=== PATIENT | female | born 1980 | race Caucasian/White ===

== ENCOUNTER 2018-05-27 12:57 | Inpatient (IN) | payer BC, OTHER ==
[~2018-05-27] VITALS: Ht 160 cm; Wt 72.6 kg
--- NOTE | 2018-05-27 13:15 | NUR ---
1302 DELIVERY OF BABY, HEAD CAME OUT WITHIN THE JAGJIT MINUTE THE BODY WAS DELIVERED. 1305 PLACENTA DELIVERY LIVE OF BOY. STAFF PRESENT: USHA AVILA RN, ANDIE DIXON RN, DR. JOYCE, DR. DAMIAN, (NOE ESTRADA, ROMA, JOEY MARTIN, ROMA, AND MICH CHATTERJEE CNA) DR[facility] STAFF ACCOMPANIED HER. PT WAS 37 WEEKS 5 DAYS GESTATION NO PAIN MEDICATION OR ANESTHESIA DELIVERY PERFORMED BY DR. DAMIAN 1 MINUTE - 8 5 MINUTE- 9 PLACENTA, CORD, AND BLOOD COLLECTED AT 1345 BY USHA AVILA RN. OXYTOCIN WAS RUNNING A BOLUS WIDE OPEN. TRANSPORTED TO VIA [facility] IN [place]. REPORT GIVEN TO OLIVER JAY RN/MEDIC AND CHLOE HORTON, EMT.
--- NOTE | 2018-05-27 13:19 | ED General ---
General Chief Complaint: TELEGRAPH DISPATCHER Stated Complaint: L&D Source of Information: Patient History of Present Illness Date Seen by Provider: May 27, 2018 Time Seen by Provider: 13:00 (immediately on arrival) This is a 38-year-old female at approximately 37 weeks gestation who presents to the emergency department with suspected labor. She has been having contractions coming and going all morning, she admits to loss of fluid. She takes vitamins but takes no other medications. She denies any other symptoms at this time. She called her TELEGRAPH DISPATCHER Dr. Rosen who advised patient to come to the emergency department, Dr. Rosen and her team came to the emergency department prior to patient arrival. Allergies and Home Medications Allergies Coded Allergies: No Known Drug Allergies (Unverified , 05/27/18) Patient Home Medication List Home Medication List Reviewed: Yes Review of Systems Review of Systems Constitutional: no symptoms reported EENTM: no symptoms reported Respiratory: no symptoms reported Cardiovascular: no symptoms reported Gastrointestinal: no symptoms reported Genitourinary: see HPI Psychiatric/Neurological: No Symptoms Reported All Other Systems Reviewed Negative Unless Noted: Yes (Negative excepted noted.) Past Vskxshx-Ahaoms-Rsrinh Hx Past Med/Social Hx: Reviewed Nursing Past Med/Soc Hx Physical Exam Vital Signs Vital Signs - First Documented 05/27/18 13:00 Temp 98.2 Pulse 91 Resp 18 B/P (MAP) 145/88 (107) Pulse Ox 98 O2 Delivery Room Air Capillary Refill : Height, Weight, BMI Height: '" Weight: lbs. oz. kg; BMI Method: General Appearance: Other (appears to be having intermittent contractions) HEENT: PERRL/EOMI, Moist Mucous Membranes Neck: Supple Respiratory: Lungs Clear Cardiovascular: Regular Rate, Rhythm, Normal Peripheral Pulses Gastrointestinal: Other (gravid abdomen, after delivery uterus is firm to palpation) Genital/Rectal: Other (sterile gloved exam performed by Dr. Rosen at bedside) Neurologic/Psychiatric: Alert, No Motor/Sensory Deficits Skin: Warm/Dry Progress/Results/Core Measures Suspected Sepsis SIRS Temperature: Pulse: Respiratory Rate: Blood Pressure / Mean: Results/Orders My Orders Orders - ELSIE JOYCE DO Oxytocin/Normal Saline (Pitocin Pre-Mix) (05/27/18 13:20) Placenta & Cord To Pathology (05/27/18 13:40) Medications Given in ED Current Medications Medications Dose Ordered Sig/Shanelle Route Start Time Stop Time Status Last Admin Dose Admin Oxytocin/Sodium Chloride 500 ml @ ud STK-MED ONCE IV 05/27/18 13:20 05/27/18 13:23 DC 05/27/18 13:24 999 MLS/HR Vital Signs/I&O 05/27/18 05/27/18 13:00 13:25 Temp 98.2 97.8 Pulse 91 72 Resp 18 18 B/P (MAP) 145/88 (107) 117/71 (86) Pulse Ox 98 99 O2 Delivery Room Air Room Air Capillary Refill : Progress Note : Progress Note TELEGRAPH DISPATCHER was at bedside since prior to patient arrival and performed the vaginal delivery of baby and placenta. There were no observed complications. See Dr. Rosen's separate procedure note. Mom was reassessed after delivery and stated that she was feeling fine. Uterus was firm, there was no significant ongoing vaginal bleeding. There appeared to be a very small posterior vaginal laceration on inspection. Baby appeared to be doing well, had APGARs of 8 and 9. Patient and baby will be transferred for further care. Pitocin will be ordered in accordance with TELEGRAPH DISPATCHER recommendations. Departure Impression Primary Impression: Vaginal delivery Disposition: XFER SHT-TRM HOSP Condition: Stable Transfer Time Spoke to Accepting Phy: 13:10 Transfer Facility: [place], accepted by Dr Rosen Method of Transfer: EMS ELSIE JOYCE DO May 27, 2018 13:19
[2018-05-27] MEDS ORDERED: OXYTOCIN/NORMAL SALINE 500 ML IV ONE ×2 (13:20→14:55)
--- NOTE | 2018-05-27 14:48 | NUR ---
Pt to room 310 via gurney accompanied by gis database administrator staff. Report rec'd previously from Laila Hall RN 1334 and updates bedside from EMT staff at this time. Hx: pt started nikkie at home this AM, but irregular at first, SROM occurred around 1230, clear fluid. Pt presented to [facility] ER for precipitous delivery. VS and assessment completed upon arrival, FFU/1, light rubra lochia noted no clots expressed. Pericare performed, abrasion noted between R labia, no active bleeding at this time. packet explained, fresh ice water provided. Second IV pitocin started at this time, first bag finished en route with EMS. Pt denies further needs or concerns at this time.
[2018-05-27 15:00] VITALS: BP 112/75
--- NOTE | 2018-05-27 15:18 | OB Labor & Delivery Record ---
Vag Delivery Note Vag Delivery Note Date of Delivery: 05/27/18 Preoperative Diagnosis: Liset Sanchez is a (38 /Para / ,Gestational Age (wks)with [37 5/7 wga] Postoperative Diagnosis: Same Surgeon: RASHAWN DAMIAN Senior Climate Advisor: [Dr. Salazar] Anesthesia: [none] Delivery Type: [] Findings: [] Viable [male] , apgars [8/9], weight [6 pounds 9 ounces] Lacerations: Intact placenta with 3 vessel cord. No nuchal cord, body cord or shoulder dystocia Estimated Blood Loss: [200] ml Complications: None Condition: Stable Description of Procedure: The patient is a 38 year old female who presented [in labor to ED]. Her labor course was remarkable for [precipitous delivery in [place] ED] Initial exam upon entrance to ED showed 10/100/+2. She was then set up for delivery in bed. The 's head was delivered atraumatically in the [OA] position. The shoulders and remainder of the infant' s body were then delivered without difficulty. Upon delivery, the head was held below the level of the perineum and the mouth and nares were bulb suctioned. The cord was doubly clamped and cut after 60 seconds when infant was on maternal abdomen. An intact placenta with 3-vessel cord delivered via [place] and there was found to be minimal bleeding.~ Vigorous fundal massage was performed and the fundus was found to be firm. IV oxytocin was given. Examination of the vagina and perineum revealed no lacerations. Following the repair, sponge, instrument and needle counts were correct. Mom and baby were both in stable condition in the ED. Vitals - Labs Vital Signs - I&O Vital Signs Date Time Temp Pulse Resp B/P (MAP) Pulse Ox O2 Delivery O2 Flow Rate FiO2 05/27/18 13:25 97.8 72 18 117/71 (86) 99 Room Air 05/27/18 13:00 98.2 91 18 145/88 (107) 98 Room Air RASHAWN DAMIAN MD May 27, 2018 15:18
--- OUTSIDE RECORDS SUMMARY | 2018-05-27 15:53 | XMS REPORT | Continuity of Care Document ---
Author Author [facility] Address Unknown Phone Unavailable Allergies Active Description Code Type Severity Reaction Onset Reported/Identified Relationship to Patient Clinical Status Yes No Known Medication Allergies Drug N/A N/A Yes No Known Medication Allergies Drug N/A N/A Medications Medication Packaging Start Date Stop Date Route Dosage Sig norethindrone 09/28/2014 06/19/2015 PO 0.35 mg / 1 tab norethindrone 06/19/2015 Jencycla 0.35 mg oral tablet Problems Date Dx Coded Attending Type Code Diagnosis Diagnosed By 07/16/2014 Navin Hsieh Final 285.9 Anemia, Unspecified 07/16/2014 Navin Hsieh Final 648.21 Anemia Complicating , Childbirth, or the Puerperium 07/16/2014 Navin Hsieh Final 659.81 Other Specified Indications for Care or Intervention Related 07/16/2014 Navin Hsieh Admitting 659.83 Other Specified Indications for Care or Intervention Related 07/16/2014 Navin Hsieh Final 664.01 First-Degree Perineal Laceration During Delivery, Delivered, 07/16/2014 Navin Hsieh Final V27.0 Mother with Single Liveborn Procedures Code Description Performed By Performed On 73.4 Medical Induction of Labor RADHA LAUREANO 07/14/2014 73.59 Other Manually Assisted Delivery RADHA LAUREANO 07/14/2014 75.69 Repair of Other Current Obstetric Lacera RADHA LAUREANO 07/14/2014 Results There is no data. Encounters ACCT No. Visit Date/Time Discharge Status Pt. Type Provider Facility Loc./Unit Complaint [id number] 08/30/2014 10:42:22 08/30/2014 23:59:59 CLS Outpatient Navin Hsieh [facility] 6 wk [id number] 07/28/2014 10:01:34 07/28/2014 23:59:59 CLS Outpatient [facility] 2 wk [id number] 07/11/2014 08:51:15 07/11/2014 23:59:59 CLS Outpatient HsiehNavin mckeon [facility] OB check [id number] 07/04/2014 08:43:11 07/04/2014 23:59:59 CLS Outpatient [facility]/ [facility] OB check [id number] 06/27/2014 08:46:32 06/27/2014 23:59:59 CLS Outpatient Navin Hsieh [facility] OB check [id number] 06/20/2014 08:45:32 06/20/2014 23:59:59 CLS Outpatient Navin Hsieh [facility] OB check [id number] 06/06/2014 07:22:20 06/06/2014 23:59:59 CLS Outpatient [facility]/ [facility] OB check [id number] 05/23/2014 08:55:06 05/23/2014 23:59:59 CLS Outpatient Navin Hsieh [facility] OB check [id number] 03/28/2014 09:45:03 03/28/2014 23:59:59 CLS Outpatient Navin Hsieh [facility] OB check [id number] 02/22/2014 13:10:12 02/22/2014 23:59:59 CLS Outpatient Navin Hsieh [facility] OB SONO FOR ANATOMY [id number] 01/25/2014 14:18:14 01/25/2014 23:59:59 CLS Outpatient Navin Hsieh [facility] 12/03/13: LSIL (OB PT) [id number] 06/19/2015 15:04:37 Document Registration [id number] 07/14/2014 07:41:00 07/16/2014 11:33:00 [id number] 06/20/2014 12:06:00 07/15/2014 15:12:00 DIS Preadmit [facility] MBU KELLY [id number]
[2018-05-27] MEDS ORDERED: OXYTOCIN/NORMAL SALINE 500 ML IV SCH (16:39)
[2018-05-27] MEDS ORDERED: BENZOCAINE/MENTHOL (DERMOPLAST) 56 ML CAN TP PRN (16:45)
[2018-05-27] MEDS ORDERED: TETANUS,DIPTH,PERTUSS P/F (BOOSTRIX) 0.5 ML VIAL IM ONE (16:45)
[2018-05-27] MEDS ORDERED: MEASLES,MUMPS,RUBELLA 1 EA INJ SQ ONE (16:45)
[2018-05-27] MEDS ORDERED: WITCH HAZEL(TUCKS) 40 EA JAR TOP PRN (16:45)
[2018-05-27] MEDS: IBUPROFEN 600 MG (MOTRIN) TAB PO SCH ×2 (17:20→23:40)
--- NOTE | 2018-05-27 19:00 | NUR ---
Dr Rosen here to see pt, no new orders rec'd.
--- NOTE | 2018-05-27 19:22 | History & Physical-OB ---
OB - Chief Complaint & HPI Date/Time Date of Admission: Date of Admission: May 27, 2018 at 14:48 Date seen by a Provider: May 27, 2018 Time Seen by a Provider: 19:19 Chief Complaint/History OB-Reason for Admission/Chief: Post- care after delivery in [place] ED Hx : 3 Hx Para: 3 Gestational Age in Weeks: 37 Gestational Age in Days: 5 Admission Nurse Assessment Rev: Yes Allergies and Home Medications Allergies Coded Allergies: No Known Drug Allergies (Unverified , 05/27/18) Patient Home Medication List Home Medication List Reviewed: Yes OB - History Hx of Present Care: Yes Ultrasounds: Normal mid trimester US Obstetrical Complications: None Medical Complications: None Patient Past Medical History previously healthy Social History/Family History Recent Infectious Disease Expo: No Alcohol Use: Denies Use Recreational Drug Use: No 2nd Hand Smoke Exposure: No OB - Admission Exam Physical Exam Vitals: Vital Signs 05/27/18 15:00 Temp 98.2 Pulse 71 Resp 18 B/P (MAP) 112/75 (87) Pulse Ox 97 O2 Delivery Room Air HEENT: NCAT Heart: Rhythm Normal Lungs: Clear Abdomen: Other (fundus firm below umbilicus) Extremities: Normal Reflexes: Normal Cervical Dilatation: None OB - Assessment/Plan/Diagnosis Assessment Admission Dx Post 37 5/7 wga delivery in ED. Admission Status: Inpatient Order (span 2 midnights) Reason for Inpatient Admission: Post- vaginal delivery at 37 5/7 wga. Discharge Diagnosis Diagnosis: Routine post- care. RASHAWN DAMIAN MD May 27, 2018 19:22
[2018-05-27 19:30] VITALS: BP 96/68
--- NOTE | 2018-05-27 19:45 | NUR ---
Nurse at pt bedside. Pt. sleeping soundly. Vitals taken at this time. WNL's. Pt does not wake for vitals. Breath sounds are clear. Son is at pt bedside. Nurse talks to son about staying the night d/t pt being a fall risk. Son is happy to stay the night and states that he was planning on it. Nurse request that pt calls out when she wakes up so I can get a more accurate assessment.
--- NOTE | 2018-05-27 21:00 | NUR ---
Pt. up to shower. IV removed at this time. Bleeding WNL's.
[2018-05-27] MEDS ORDERED: CATHETER FLUSH 10 ML SYR IV SCH (22:00)
[2018-05-27] MEDS: DOCUSATE SODIUM 100 MG (COLACE) CAP PO SCH (23:40)
[2018-05-27 23:45] VITALS: BP 90/64
[2018-05-28 04:00] VITALS: BP 97/58
[2018-05-28] MEDS: IBUPROFEN 600 MG (MOTRIN) TAB PO SCH ×4 (05:59→23:48)
[2018-05-28 06:47] LABS: BASOPHILS % (AUTO) 0 % (0-10); EOSINOPHILS # (AUTO) 0.1 10^3/uL (0.0-0.3); EOSINOPHILS % (AUTO) 1 % (0-10); HEMATOCRIT 28 % (35-52); HEMOGLOBIN 9.1 G/DL (11.5-16.0); LYMPHOCYTES # (AUTO) 2.8 X 10^3 (1.0-4.0); LYMPHOCYTES % (AUTO) 21 % (12-44); MEAN CORPUSCULAR HEMOGLOBIN 28 PG (25-34); MEAN CORPUSCULAR HGB CONC 32 G/DL (32-36); MEAN CORPUSCULAR VOLUME 88 FL (80-99); MEAN PLATELET VOLUME 10.3 FL (7.4-10.4); MONOCYTES % (AUTO) 8 % (0-12); NEUTROPHILS # (AUTO) 9.2 X 10^3 (1.8-7.8); NEUTROPHILS % (AUTO) 70 % (42-75); PLATELET COUNT 140 10^3/uL (130-400); WHITE BLOOD COUNT 13.2 10^3/uL (4.3-11.0)
[2018-05-28 07:30] VITALS: BP 101/67
[2018-05-28] MEDS: PRENATAL VITAMIN 1 EA TAB PO SCH (09:03)
[2018-05-28] MEDS: DOCUSATE SODIUM 100 MG (COLACE) CAP PO SCH ×2 (09:04→23:48)
--- NOTE | 2018-05-28 11:02 | Progress Note (SOAP) ---
Subjective Subjective/Events-last exam Afebrile, relatively low BP. Denies dizziness, chest pain, shortness of breath. Bleeding decreasing. without difficulty. Review of Systems Date Seen by Provider: May 28, 2018 Time Seen by Provider: 08:43 Objective Exam Last Set of Vital Signs Vital Signs Date Time Temp Pulse Resp B/P (MAP) Pulse Ox O2 Delivery O2 Flow Rate FiO2 05/28/18 07:30 98.4 68 20 101/67 (78) 98 Room Air Capillary Refill : Less Than 3 Seconds I&O Intake and Output 05/28/18 00:00 Intake Total 500 ml Balance 500 ml Intake IV Total 500 ml Daily Weight Change No General: Alert, No Acute Distress Lungs: Clear to Auscultation, Normal Air Movement Heart: Regular Rate, No Murmurs Abdomen: Other (fundus firm below umbilicus, appropriately tender) Extremities: No Edema Neuro: Normal Speech Psych/Mental Status: Mental Status NL Results/Procedures Lab Laboratory Tests 05/28/18 06:25: White Blood Count 13.2H, Red Blood Count 3.21L, Hemoglobin 9.1L, Hematocrit 28L , Mean Corpuscular Volume 88, Mean Corpuscular Hemoglobin 28, Mean Corpuscular Hemoglobin Concent 32, Red Cell Distribution Width 13.0, Platelet Count 140, Mean Platelet Volume 10.3, Neutrophils (%) (Auto) 70, Lymphocytes (%) (Auto) 21 , Monocytes (%) (Auto) 8, Eosinophils (%) (Auto) 1, Basophils (%) (Auto) 0, Neutrophils # (Auto) 9.2H, Lymphocytes # (Auto) 2.8, Monocytes # (Auto) 1.0, Eosinophils # (Auto) 0.1, Basophils # (Auto) 0.0 Assessment/Plan Assessment/Plan (1) Normal vaginal delivery Status: Acute Assessment & Plan: Routine care, blood type A+. (2) anemia Status: Acute Assessment & Plan: Iron sulfate daily. Clinical Quality Measures DVT/VTE Risk/Contraindication: Risk Factor Score Per Nursin RFS Level Per Nursing on Admit: 1=Low/No VTE PPX PARIS GRIGGS MD May 28, 2018 11:01
[2018-05-28 12:33] VITALS: BP 94/61
[2018-05-28 15:40] VITALS: BP 96/61
[2018-05-28 23:48] VITALS: BP 94/61
[2018-05-29 05:39] VITALS: BP 91/61
[2018-05-29] MEDS: IBUPROFEN 600 MG (MOTRIN) TAB PO SCH ×2 (05:39→12:43)
[2018-05-29] MEDS ORDERED: FERROUS SULF 325 MG (IRON) TAB PO SCH (07:00)
--- NOTE | 2018-05-29 07:00 | NUR ---
REPORT FROM ALLEN BRANDON.
[2018-05-29] MEDS ORDERED: PNV1TABL67 PO (08:18)
[2018-05-29] MEDS ORDERED: IBUP-844 PO (08:18)
[2018-05-29] MEDS ORDERED: FERR325T18 PO (08:18)
--- NOTE | 2018-05-29 08:19 | Discharge Instructions ---
Discharge Inst-Women's Serv Depart Medications New, Converted or Re-Newed RX: RX on Chart New Medications: Ferrous Sulfate (Ferrous Sulfate) 325 Mg Tablet 325 MG PO DAILY@0700, #30 TAB 0 Refills Ibuprofen (Ibu) 600 Mg Tablet 600 MG PO Q6H PRN for PAIN-MODERATE, #60 TAB 0 Refills Pnv with Ca,No.72/Iron/FA (Pnv Plus Multivit Tab) 1 Each Tablet 1 EA PO DAILY@0700, #30 TAB 11 Refills Follow Up/Instructions Goal/Follow Up: Follow up with Dr. Damian in 6 weeks for check Activity Activity: Activity as Tolerated (avoid strenuous activity x 6 weeks) Driving Instructions: You May Drive Nothing Inside Vagina: No Douching, No Gattman, No Tampons Diet Discharge Diet: Regular Diet Symptoms to Report to : Swelling Increased, Bleeding Excessive, Fever Over 101 Degrees F, Pain/Pressure in Chest, Vaginal Bleeding Increase, Cramps in Feet or Legs, Vaginal Discharge Foul, Dizziness/Fainting, Shortness of Breath For Any Problems or Questions: Contact Your Physician Copies To 1: RASHAWN DAMIAN MD,PARIS Brennan MD May 29, 2018 08:19
[2018-05-29 09:00] VITALS: BP 95/50
--- NOTE | 2018-05-29 09:35 | NUR ---
DR CHO NEW ORDERS RECEIVED.
[2018-05-29] MEDS: DOCUSATE SODIUM 100 MG (COLACE) CAP PO SCH (09:47)
[2018-05-29] MEDS: PRENATAL VITAMIN 1 EA TAB PO SCH (09:47)
--- NOTE | 2018-05-29 11:02 | Discharge Summary ---
Diagnosis/Chief Complaint Date of Admission May 27, 2018 at 14:48 Date of Discharge May 29, 2018 Admission Diagnosis Admission Diagnosis Spontaneous vaginal delivery at full term Discharge Diagnosis See below Problems/Diagnosis: (1) Normal vaginal delivery Assessment & Plan: Routine care, blood type A+. Status: Acute (2) anemia Assessment & Plan: Iron sulfate daily. Status: Acute Chief Complaint/HPI Chief Complaint/HPI 38 yo G3 now P3 delivered precipitously in the ER in [facility] and was transferred to [facility] care. Discharge Summary-Simple/Stand Procedures Spontaneous vaginal delivery Discharge Physical Examination Allergies: Coded Allergies: No Known Drug Allergies (Unverified , 05/27/18) Vitals & I&Os Vital Sign - Last 12Hours Date Time Temp Pulse Resp B/P (MAP) Pulse Ox O2 Delivery O2 Flow Rate FiO2 05/29/18 05:39 98.2 92 22 91/61 (71) 98 Room Air General Appearance: Alert, No Acute Distress Respiratory: Clear to Auscultation, Normal Air Movement Cardiovascular: Regular Rate, No Murmurs Abdominal: Other (fundus firm below umbilicus) Extremities: No Edema Neuro: Normal Speech Psych/Mental Status: Mental Status NL Hospital Course See final discharge diagnosis. Labs Laboratory Tests Test 05/28/18 06:25 Range/Units White Blood Count 13.2 H 4.3-11.0 10^3/uL Red Blood Count 3.21 L 4.35-5.85 10^6/uL Hemoglobin 9.1 L 11.5-16.0 G/DL Hematocrit 28 L 35-52 % Mean Corpuscular Volume 88 80-99 FL Mean Corpuscular Hemoglobin 28 25-34 PG Mean Corpuscular Hemoglobin Concent 32 32-36 G/DL Red Cell Distribution Width 13.0 10.0-14.5 % Platelet Count 140 130-400 10^3/uL Mean Platelet Volume 10.3 7.4-10.4 FL Neutrophils (%) (Auto) 70 42-75 % Lymphocytes (%) (Auto) 21 12-44 % Monocytes (%) (Auto) 8 0-12 % Eosinophils (%) (Auto) 1 0-10 % Basophils (%) (Auto) 0 0-10 % Neutrophils # (Auto) 9.2 H 1.8-7.8 X 10^3 Lymphocytes # (Auto) 2.8 1.0-4.0 X 10^3 Monocytes # (Auto) 1.0 0.0-1.0 X 10^3 Eosinophils # (Auto) 0.1 0.0-0.3 10^3/uL Basophils # (Auto) 0.0 0.0-0.1 10^3/uL Discharge Instructions to patient/family Please see electronic discharge instructions given to patient. Discharge Medications Reviewed and agree with Discharge Medication list on patient's Discharge Instruction sheet Clinical Quality Measures DVT/VTE Risk/Contraindication: Risk Factor Score Per Nursin RFS Level Per Nursing on Admit: 1=Low/No VTE PPX Copy Copies To 1: RASHAWN DAMIAN MD, BETHANY N MD May 29, 2018 11:02
[2018-05-29 12:00] VITALS: BP 118/81
--- NOTE | 2018-05-29 12:30 | NUR ---
SCHEDULED MOTRIN GIVEN, PT EATING LUNCH, AT SIDE.
--- NOTE | 2018-05-29 13:50 | NUR ---
D/C INSTRUCTIONS EXPLAINED, SIGNED, NO QUESTIONS NOTED, PT VERBALIZES UNDERSTANDING OF FOLLOW UP CARE AND INSTRUCTIONS.
--- NOTE | 2018-05-29 14:30 | NUR ---
PT DISCHARGED TO HOME, AMBULATED TO PRIVATE CAR WITH S/O AND AT SIDE, NO DISTRESS NOTED.
== END 2018-05-29 14:30 | disposition home or self-care (01) | DRG 776 ==
LOC: EDUNIT# 13:06 → ER FS 13:08 → LDRP 14:48
PROVIDERS: ADMIT Family Medicine; ATTEND Family Medicine
DX: O90.81 Anemia of the puerperium (principal); D62 Acute posthemorrhagic anemia
CPT/HCPCS: 36415; 59409; 85025; 86850; 86900; 86901

== ENCOUNTER → 2020-02-01 | Outpatient (CLI) | payer BC ==
[~2020-02-01] MED LIST: FERR325T18 PO; IBUP-844 PO; PNV1TABL67 PO
[2020-02-01 12:06] LABS: HEMOGLOBIN 12.6 G/DL (11.5-16.0); MEAN CORPUSCULAR HEMOGLOBIN 29 PG (25-34)
[2020-02-01 12:07] LABS: BASOPHILS % (AUTO) 0 % (0-10); EOSINOPHILS % (AUTO) 1 % (0-10); HEMATOCRIT 38 % (35-52); LYMPHOCYTES % (AUTO) 32 % (12-44); MEAN CORPUSCULAR HGB CONC 33 G/DL (32-36); MEAN CORPUSCULAR VOLUME 89 FL (80-99); MEAN PLATELET VOLUME 9.8 FL (7.4-10.4); MONOCYTES % (AUTO) 5 % (0-12); NEUTROPHILS % (AUTO) 63 % (42-75); PLATELET COUNT 175 10^3/uL (130-400)
[2020-02-01 12:08] LABS: EOSINOPHILS # (AUTO) 0.1 10^3/uL (0.0-0.3); LYMPHOCYTES # (AUTO) 2.2 X 10^3 (1.0-4.0); MONOCYTES # (AUTO) 0.3 X 10^3 (0.0-1.0); NEUTROPHILS # (AUTO) 4.4 X 10^3 (1.8-7.8)
[2020-02-01 13:28] LABS: ALANINE AMINOTRANSFERASE 10 U/L (0-55); ALBUMIN 4.6 GM/DL (3.2-4.5); ALKALINE PHOSPHATASE 39 U/L (40-136); BILIRUBIN,TOTAL 0.3 MG/DL (0.1-1.0); BUN/CREATININE RATIO 16; CALCIUM 9.3 MG/DL (8.5-10.1); CARBON DIOXIDE 25 MMOL/L (21-32); CHLORIDE 103 MMOL/L (98-107); CREATININE SERUM 0.86 MG/DL (0.60-1.30); GFR ESTIMATED > 60; GLUCOSE 90 MG/DL (70-105); POTASSIUM 4.1 MMOL/L (3.6-5.0); SODIUM 139 MMOL/L (135-145); TOTAL PROTEIN 7.4 GM/DL (6.4-8.2)
[2020-02-01 15:26] LABS: CHOLESTEROL 199 MG/DL (< 200); HDL CHOLESTEROL 66 MG/DL (40-60); TRIGLYCERIDES 81 MG/DL (<150); VLDL CHOLESTEROL 16 MG/DL (5-40)
== END ==
LOC: LAB FS 11:44
PROVIDERS: ATTEND Family Medicine
DX: Z01.419 Encounter for gynecological examination (general) (routine) without abnormal findings (principal)
CPT/HCPCS: 36415; 80053; 80061; 85025

== ENCOUNTER → 2021-10-16 | Outpatient (CLI) | payer BC ==
--- NOTE | 2021-10-16 16:57 | Diagnostic Imaging Report ---
INDICATION: [place] a pop during softball. EXAMINATION: Right knee, 3 views on 10/16/2021. FINDINGS: There are postop changes, consistent with previous ACL repair. No fractures or dislocations are appreciated. There is a small joint effusion. IMPRESSION: Post operative findings with a small joint effusion noted. Dictated by: Dictated on workstation # [id number]
== END ==
LOC: ORTHO 15:00
PROVIDERS: ATTEND Orthopaedic Surgery
DX: M25.461 Effusion, right knee (principal); M25.561 Pain in right knee; Z98.890 Other specified postprocedural states; Y93.64 Activity, baseball
CPT/HCPCS: 73562; G0463; 99202